=== PATIENT | male | born 1980 ===

== ENCOUNTER 2016-12-01 22:52 | Emergency (ER) | payer MEDICAID, OTHER ==
[~2016-12-01] VITALS: Ht 167.6 cm; Wt 136.9 kg
[2016-12-01 22:55] VITALS: BP 146/87; PULSE 114; RESP 18; O2SAT 100
--- NOTE | 2016-12-01 23:04 | ED.REPORT ---
HPI-General Illness Date of Service Dec 01, 2016 ED Provider: Kevin Linn MD Pt is a 36 y.o. male with a hx of HTN who presents to the ED c/o bilateral rib pain onset several months ago and worsening 1 week ago. Pt states that the episodes last several hours, he says that the pain is exacerbated by movement. He reports associated SOB and diaphoresis. He denies fever, nausea, and vomiting. He was prescribed muscle relaxers for the pain and states that it does not provide any relief. He also denies any trauma or injury. Nursing Notes Stated Complaint: RIB PAIN Chief Complaint: Male Abdominal Pain Nursing Notes Reviewed: Yes (Gigit, [employer] not reconciled) Allergies: Coded Allergies: No Known Allergies (Unverified , 12/01/16) Scheduled Omeprazole (Omeprazole) 20 Mg Capsule.dr 20 MG PO DAILY General Time Seen by MD: 23:03 Chief Complaint Other (Rib pain) Hx Obtained From: Patient Arrived By: Walk-in Sudden in Onset?: Yes Onset Occurred: More than a week ago... Symptom Duration: Intermittent Quality: Painful Severity: Current: Moderate Recent Healthcare: No recent hospitalization Past Medical History Past Medical History Reports: Hypertension Past Surgical History Denies Social History Other Social History: Good social support Ambulatory Status Independent Review of Systems Full Review of Systems Constitutional: Denies: Fever Respiratory: Reports: Shortness of breath Cardiovascular: Reports: Chest pain (Rib pain) GI: Denies: Nausea, Vomiting Skin: Reports Diaphoresis Complete sys rev & neg: except as marked. Physical Exam Vital Signs Vital Signs Date Time Temp Pulse Resp B/P Pulse Ox O2 Delivery O2 Flow Rate FiO2 12/02/16 00:13 36.7 97 20 134/90 97 Room Air 12/01/16 22:55 36.7 114 18 146/87 100 Room Air Initial VS: Reviewed, Vital signs abnormal (Hr 114) Head / Eyes: Atraumatic, Normocephalic Abdomen / GI: Soft, Non-tender, No distention Extremities: Vascular intact, Neuro intact Skin: Warm, Dry, No cyanosis Neurologic: Alert, Oriented, Nonfocal Psychiatric: Mood/affect normal, Behavior normal, Normal thought content General/Constitutional: Awake, Alert, No acute distress, Well appearing, Well developed, Well hydrated, Not toxic appearing Appearance / Presentation: Positive: Obese, morbidly Respiratory / Chest: Atraumatic, Breath sounds NL, Breath sounds = bilat, No respiratory distress, No rales, No rhonchi, No wheezing, No retractions, No stridor, No chest tenderness Cardiovascular: Regular rhythm, Heart sounds NL, No gallop, No murmurs, No rubs , Peripheral circulation NL Heart Rate / Rhythm: Positive: Tachycardia Interpretation & Diagnostics Lab Results Interpretation Result Diagram: 12/01/16 2323 12/01/16 2323 Test 12/01/16 23:23 White Blood Count 8.9th/mm3 (3.8-10.1) Red Blood Count 5.28mil/mm3 (4.40-5.80) Hemoglobin 15.5g/dL (13.8-17.2) Hematocrit 44.1% (41.0-50.0) Mean Corpuscular Volume 83.5fL (81-100) Mean Corpuscular Hemoglobin 29.4pg (27.0-35.0) Mean Corpuscular Hemoglobin Concent 35.1% (32.0-37.0) Red Cell Distribution Width 12.6% (12.3-15.4) Platelet Count 352bil/L (150-400) Neutrophils (%) (Auto) 70.1% (40-74) Lymphocytes (%) (Auto) 22.5% (14-46) Monocytes (%) (Auto) 5.7% (4-12) Eosinophils (%) (Auto) 1.3% (0-5) Basophils (%) (Auto) 0.2% (0-3) Sodium Level 141mEq/L (134-144) Potassium Level 4.0mEq/L (3.5-5.2) Chloride Level 101mEq/L (97-108) Carbon Dioxide Level 22mmol/L (18-29) Blood Urea Nitrogen 12mg/dL (6-20) Creatinine 0.56mg/dL (0.76-1.27) Estimat Glomerular Filtration Rate 174mL/min (>59) Glucose Level 98mg/dL (60-99) Calcium Level 9.3mg/dL (8.5-10.1) Total Bilirubin 0.5mg/dL (0.0-1.2) Aspartate Amino Transf (AST/SGOT) 16U/L (0-50) Alanine Aminotransferase (ALT/SGPT) 25U/L (0-44) Alkaline Phosphatase 87U/L (25-150) Troponin T 0.010ug/L (0.0-0.011) Total Protein 8.1g/dL (6.4-8.4) Albumin 4.8g/dL (3.4-5.0) Lipase 112U/L (13-60) Lab Results Interpretation: CBC is normal CMP is normal lipase is slightly elevated, but non-diagnostic (<3 limit) ECG Interpretation ECG Interpretation: EKG normal sinus rhythm rate of 98, no ischemic or dysrhythmic changes No Prior EKG available for comparison Time: 23:59 X-Ray Chest Interpretation Chest Xray Interpretation: IMPRESSION: Negative Interpretation / Wet Read by: Wet read ED physician Re-Eval/Medical Decision Med Decision/Clinical Course This is a 36-year-old obese male presents complaining of episodic pain intermittent over the past month, but worsened over the past week grabs him around both sides about the right side right left sided epigastric and upper abdomen is intensely painful, it feels like a spasm. It slightly diaphoretic, has had no fevers chills the pain can last for several hours. It is not localized to the right upper quadrant in isolation minutes again the entire area. His family became concerned and so brought him in to get checked out. He is not currently having symptoms. He clinically appears well. His abdomen is obese, but entirely nontender including the right upper quadrant with no clinical findings of a Castañeda's. His lungs are clear, his vitals are normal. He does note he is supposed to be on omeprazole but has been out for a few months and reports she does get dyspeptic symptoms several times a week. An EKG is normal without ischemic changes. Blood work is normal. Chest x-rays negative. Again he has no right upper quadrant tenderness necessitate ultrasound imaging. A dangerous cause of his symptoms has not been identified, not finding signs that additional imaging or testing are warranted at this time. His lipase is slightly elevated, so pancreatitis is in the differential-but he appears well, he reports is been eating and drinking and it does not provoke his symptoms-he denies alcohol use. So he is presentation is not classic for pancreatitis, he appears well, and given that the lipase level after more than a week of recurrent symptoms remain sub-diagnostic are not finding medication to think that is the diagnosis, or that additional imaging is warranted at this time. Routine precautions reviewed. Patient's being discharged Source of Hx: Old records Differential Diagnosis: Negative: Abdominal pain, Acute coronary syndrome, Allergies, Diabetes mellitus, Drug dependence, G-tube repair/replacement, Malingering, Neutropenia, Pneumonia, Seizure disorder, Syncope, Tonsillitis, acute Counseled Regarding: Diagnosis, Lab results, Need for follow-up, When/why to return to ED Discharge & Departure Primary Impression: Generalized abdominal pain Disposition: Home Discharge Condition All VS Reviewed: Yes Condition: Stable Additional Instructions: 1. A dangerous cause of the pain was not identified. 2. Your Xray, EKG, and blood tests were normal. 3. I do recommend re-starting your omeprazole - take 20mg daily. 4. IF needed you can take hydrocodone/APAP 5/325 1-2 tabs up to twice a day for an episode of pain. NOTE: This medication contains a narcotic and causes drowsiness. NO driving for at least 4 hours after taking. Use sparingly. 5. You need to be seen and rechecked again if symptoms are not improving with time or if you develop new symptoms. Referrals: Malik Alberto MD (Family) Scribe Attestation Portions of this note were transcribed by Jarad Vann. I, Dr. Linn personally performed the history, physical exam and medical decision-making; I reviewed and confirmed the accuracy of the information in the transcribed note. Signed by: Betsy Springer, 12/01/2016 and 2346. copies to: Malik Alberto MD, Matthew F MD Dec 01, 2016 23:04 JARAD VANN Dec 01, 2016 23:12
[2016-12-01 23:32] LABS: BASOPHILS % (AUTO) 0.2 % (0-3); EOSINOPHILS % (AUTO) 1.3 % (0-5); MONOCYTES % (AUTO) 5.7 % (4-12); Mean Corpuscular Hemoglobin 29.4 pg (27.0-35.0); Mean Corpuscular Volume 83.5 fL (81-100); NEUTROPHILS % (AUTO) 70.1 % (40-74); Platelet Count 352 bil/L (150-400)
[2016-12-01] MEDS ORDERED: OMEP20CA11 PO (23:33)
[2016-12-01] MEDS ORDERED: _HYDROcodone/APAP 5-325 mg Tablet PO PRN (23:45)
[2016-12-02 00:13] VITALS: BP 134/90; PULSE 97; RESP 20; O2SAT 97
[2016-12-02 00:14] LABS: TROPONIN T 0.01 ug/L (0.0-0.011)
--- NOTE | 2016-12-02 08:33 | DRSVH ---
PROCEDURE: X-RAY CHEST, TWO VIEWS ([id number]) INDICATIONS: CHEST PAIN TECHNIQUE: 2 views of the chest were acquired. COMPARISON: None. FINDINGS: Surgical changes and devices: None. Lungs and pleura: No pleural effusions or pneumothorax. Lungs are clear. Mediastinum: Mediastinal contours are normal. Heart size is normal. Bones and chest wall: No suspicious bony abnormalities. Soft tissues appear unremarkable. IMPRESSION: No acute pulmonary process. Dictated by: Jane Barragan M.D. on 12/02/2016 at 8:31 Approved by: Jane Barragan M.D. on 12/02/2016 at 8:31
== END 2016-12-02 00:15 | disposition home or self-care (01) ==
LOC: SED 22:52
DX: R10.84 Generalized abdominal pain (principal); R07.81 Pleurodynia; R06.02 Shortness of breath; R61 Generalized hyperhidrosis; I10 Essential (primary) hypertension